=== PATIENT | male | born 1965 | race Caucasian/White ===

== ENCOUNTER 2024-08-14 14:08 | Inpatient (IN) | payer OTHER ==
[~2024-08-14] VITALS: Ht 165.1 cm; Wt 81.7 kg
[2024-08-14 14:51] LABS: BASOPHILS ABSOLUTE AUTO 0.03 K/mm3 (0.00-0.23); BASOPHILS PERCENT AUTO 1 % (0-2); EOSINOPHILS ABSOLUTE AUTO 0.06 K/mm3 (0.00-0.68); EOSINOPHILS PERCENT AUTO 1 % (0-6); Hematocrit 45.4 % (37.0-53.0); Hemoglobin 14.7 g/dL (13.5-17.5); IMMATURE GRAN ABSOLUTE AUTO 0.01 K/mm3 (0.00-0.10); IMMATURE GRAN PERCENT AUTO 0 % (0-1); LYMPHOCYTES PERCENT AUTO 20 % (21-46); MONOCYTES ABSOLUTE AUTO 0.41 K/mm3 (0.16-1.47); MONOCYTES PERCENT AUTO 8 % (4-13); Mean Corpuscular HGB 29.4 pg (26.0-34.0); Mean Corpuscular HGB Conc 32.4 g/dL (31.5-36.5); Mean Corpuscular Volume 91 fL (80-100); Mean Platelet Volume 10.2 fL (9.1-12.4); NEUTROPHILS ABSOLUTE AUTO 3.49 K/mm3 (1.96-9.15); NEUTROPHILS PERCENT AUTO 70 % (41-73); Platelet Count 172 K/mm3 (150-400); RDW Coefficient Variation 16.3 % (11.7-14.2)
[2024-08-14 15:12] LABS: Albumin, Blood 3.1 g/dL (3.4-5.0); Albumin/Globulin Ratio 0.9 (0.8-1.8); Bilirubin, Total 1.4 mg/dL (0.1-1.0); Bun/Creatinine Ratio 18.4 (12.0-20.0); Calcium, Blood 8.8 mg/dL (8.5-10.1); Creatinine, Blood 1.03 mg/dL (0.60-1.20); Globulin, Blood 3.5 g/dL (2.2-4.0); Potassium, Blood 4.4 mmol/L (3.5-5.5); Total Protein, Blood 6.6 g/dL (6.4-8.2)
[2024-08-14] MEDS ORDERED: Furosemide 10 MG/ML 10ML Vial IV ONE (17:30)
[2024-08-14] MEDS ORDERED: Aspir 8181 MG PO (18:32)
[2024-08-14] MEDS ORDERED: CARV25 PO (18:32)
[2024-08-14] MEDS ORDERED: JARDIANCE25 MG PO (18:32)
[2024-08-14] MEDS ORDERED: PROSTIN VR500 MCG/3 (18:32)
[2024-08-14] MEDS ORDERED: ALLO100 PO (18:33)
[2024-08-14] MEDS ORDERED: TRAZ100 PO (18:33)
[2024-08-14] MEDS ORDERED: METF500 PO (18:33)
[2024-08-14] MEDS ORDERED: ESCI20 PO (18:33)
[2024-08-14] MEDS ORDERED: THERA-D2000 UNIT PO (18:34)
[2024-08-14] MEDS ORDERED: ENTRESTO 49 MG1 EACH PO (18:34)
[2024-08-14] MEDS ORDERED: FENO145 PO (18:34)
[2024-08-14] MEDS ORDERED: SPIR25 PO (18:34)
[2024-08-14] MEDS ORDERED: Ondansetron HCl 2 MG / ML 2ML Vial IV PRN (18:45)
[2024-08-14] MEDS ORDERED: FLU VACC TS2024-25(6MOS UP)/PF 45 MCG/0.5 ML SYRINGE IM SCH (18:45)
[2024-08-14 20:31] LABS: Source, Urine Clean Catch
[2024-08-14 20:34] LABS: Appearance, Urine Clear (Clear); Bilirubin, Urine Neg (Neg); Blood, Urine Neg (Neg); Glucose Qualitative, Urine 2+ (Neg); Ketones, Urine Neg (Neg); Leukocyte Esterase, Urine Neg (Neg); Nitrite, Urine Neg (Neg); Protein, Urine Neg (Neg); Urobilinogen, Urine NORM (Normal)
[2024-08-14 20:39] LABS: Color, Urine Pale Yellow (P-Yellow)
[2024-08-14] MEDS ORDERED: Enoxaparin 40 MG/0.4 ML SYR SC SCH (21:00)
[2024-08-14 21:31] VITALS: BP 137/94
[2024-08-14] MEDS ORDERED: FentaNYL Citrate 50 MCG/ML 2 ML Injection IV PRN (21:45)
[2024-08-15 02:42] VITALS: BP 152/104
[2024-08-15 03:04] LABS: BASOPHILS ABSOLUTE AUTO 0.03 K/mm3 (0.00-0.23); BASOPHILS PERCENT AUTO 1 % (0-2); EOSINOPHILS ABSOLUTE AUTO 0.11 K/mm3 (0.00-0.68); EOSINOPHILS PERCENT AUTO 2 % (0-6); Hematocrit 45.6 % (37.0-53.0); Hemoglobin 14.4 g/dL (13.5-17.5); IMMATURE GRAN ABSOLUTE AUTO 0.01 K/mm3 (0.00-0.10); IMMATURE GRAN PERCENT AUTO 0 % (0-1); LYMPHOCYTES ABSOLUTE AUTO 1.49 K/mm3 (0.84-5.20); LYMPHOCYTES PERCENT AUTO 29 % (21-46); MONOCYTES ABSOLUTE AUTO 0.55 K/mm3 (0.16-1.47); MONOCYTES PERCENT AUTO 11 % (4-13); Mean Corpuscular HGB Conc 31.6 g/dL (31.5-36.5); Mean Corpuscular Volume 92 fL (80-100); NEUTROPHILS ABSOLUTE AUTO 2.87 K/mm3 (1.96-9.15); NEUTROPHILS PERCENT AUTO 57 % (41-73); Platelet Count 197 K/mm3 (150-400); RDW Coefficient Variation 16.4 % (11.7-14.2); RDW Standard Deviation 54.6 fL (35.1-46.3); Red Blood Cell Count 4.96 M/mm3 (4.30-5.90); White Blood Cell Count 5.06 K/mm3 (4.00-11.30)
[2024-08-15 03:24] LABS: Albumin, Blood 3.1 g/dL (3.4-5.0); Albumin/Globulin Ratio 0.9 (0.8-1.8); Bun/Creatinine Ratio 18.6 (12.0-20.0); Calcium, Blood 8.9 mg/dL (8.5-10.1); Creatinine, Blood 1.13 mg/dL (0.60-1.20); Globulin, Blood 3.5 g/dL (2.2-4.0); Total Protein, Blood 6.6 g/dL (6.4-8.2)
--- NOTE | 2024-08-15 06:34 | NUR ---
VSS, ELEVATED BP. PT VOIDING APPROPRIATELY. ADMISSION COMPLETED. ADMITTED FOR FLUID OVERLOAD LASIX ADMINISTERED. NO O2 BL, REQUIRED 2L - TITRATED TO 1L VIA NC.
[2024-08-15 07:47] VITALS: BP 135/81
[2024-08-15] MEDS ORDERED: Furosemide 10 MG/ML 10ML Vial IV SCH (09:00)
[2024-08-15] MEDS ORDERED: Carvedilol 25 MG Tab PO SCH (09:00)
[2024-08-15] MEDS ORDERED: Furosemide 10 MG/ML 4ML Vial IV SCH (09:00)
[2024-08-15] MEDS ORDERED: Citalopram Hydrobromide 20 MG Tab PO SCH (09:00)
[2024-08-15] MEDS ORDERED: Sacubitril/Valsartan 49 MG/51 MG Tab PO SCH (09:00)
[2024-08-15] MEDS ORDERED: Spironolactone 25 MG Tab PO SCH (09:00)
[2024-08-15] MEDS ORDERED: Empagliflozin 10 MG TAB PO SCH (09:00)
[2024-08-15] MEDS ORDERED: Allopurinol 100 MG Tab PO SCH (09:00)
[2024-08-15] MEDS ORDERED: Aspirin 81 MG TabEC PO SCH (09:00)
[2024-08-15] MEDS ORDERED: HYDROcodone 5-APAP 325 TAB PO PRN (10:00)
[2024-08-15 13:09] LABS: U Amphetamine Screen Not Detected; U Barbituate Screen Not Detected; U Benzodiazapine Screen Not Detected; U Buprenorphine Screen Not Detected; U Cannabinoids Screen Not Detected; U Cocaine Screen DETECTED; U Methadone Screen Not Detected; U Methamphetamine Screen Not Detected; U Opiates Screen Not Detected; U Oxycodone Screen Not Detected; U Phencyclidine Screen Not Detected
[2024-08-15 15:09] VITALS: BP 110/80
--- NOTE | 2024-08-15 17:28 | NUR ---
SHIFT SUMMARY: PT AOX4 INDEPENDENT TO BATHROOM AND URINAL. STILL HEAVY EDEMA IN LEGS AND SCROTUM, SEE SHIFT SUMMARY FOR DETAILS. ECHO DONE ON PT IN THE MORNING AND DR EPSTEIN CALLED A CARDIOLOGY CONSULT BASED ON RESULTS. AT BEDSIDE AND PT RESTING. DIURESING WELL AND INTO THE URINAL INSTRUCTED. PT RESTING IN BED AND IN LOWEST POSISTION. CALL LIGHT IN REACH. CONTINUING CARE.
--- NOTE | 2024-08-15 18:18 | NUR ---
THIS SPIN INSTRUCTOR HAS REVIEWED AND AGREES WITH ALL NOTES AND ASSESSMENTS BY MAGALY ZHAO.
[2024-08-15 19:46] VITALS: BP 124/83
[2024-08-15] MEDS ORDERED: Metoprolol Succinate 25 MG TABCR PO SCH (21:00)
[2024-08-15] MEDS ORDERED: TraZODone HCl 100 MG Tab PO SCH (21:00)
[2024-08-15] MEDS ORDERED: Docusate Sodium 100 MG Cap PO SCH (21:00)
[2024-08-16 04:13] VITALS: BP 121/90
[2024-08-16 06:29] LABS: Anion Gap 10 mmol/L (3-11); Blood Urea Nitrogen 21 mg/dL (8-24); Bun/Creatinine Ratio 23.2 (12.0-20.0); CHOL/HDL RATIO 3.1; CO2, Blood 30 mmol/L (21-32); Calcium, Blood 8.5 mg/dL (8.5-10.1); Chloride, Blood 104 mmol/L (98-108); Cholesterol 118 mg/dL (50-200); Creatinine, Blood 0.91 mg/dL (0.60-1.20); Glomerular Filtration Rate 98 (60-); Glucose, Blood 105 mg/dL (70-99); HDL Cholesterol 38 mg/dL (>39); LDL/HDL RATIO 1.6; Low Density Lipoprotein Chol 61 mg/dL (0-110); Potassium, Blood 3.2 mmol/L (3.5-5.5); Sodium, Blood 141 mmol/L (136-145); Triglycerides 94 mg/dL (30-160); Very Low Density Lipoprot Chol 18 mg/dL (6-32)
--- NOTE | 2024-08-16 06:55 | NUR ---
NO ACUTE CHANGES DURING SHIFT
[2024-08-16] MEDS ORDERED: Potassium Chloride 20 MEQ TabCR PO STA (07:09)
[2024-08-16] MEDS ORDERED: Potassium Chloride 20 MEQ TabCR PO ONE (07:30)
[2024-08-16 07:58] VITALS: BP 134/97
[2024-08-16] MEDS ORDERED: Potassium Chloride 10 Meq Tablet SA PO SCH (08:30)
[2024-08-16] MEDS ORDERED: Atorvastatin 40 MG Tab PO SCH (09:00)
[2024-08-16] MEDS ORDERED: Metoprolol Succinate 25 MG TABCR PO SCH (09:00)
[2024-08-16 14:56] VITALS: BP 122/83
--- NOTE | 2024-08-16 17:47 | NUR ---
SHIFT SUMMARY: PT AOX4 DIURESING WELL. AT BEDSIDE. PT COMPLAINED OF PAIN AND NORCO GIVEN PER EMR. SHOWERED AND FEELING BETTER. EDEMA HAS REDUCED TO ABOUT 2+ FROM 4+. PT IN LOWEST POSITION WATCHING TV RESTING. BED RAILS UP AND CALL LIGHT IN REACH. CONTINUING CARE.
--- NOTE | 2024-08-16 18:24 | NUR ---
THIS CREDIT OPERATIONS PROCESSOR HAS REVIEWED AND AGREES WITH ALL NOTES AND ASSESSMENTS BY MAGALY ZHAO.
[2024-08-16 19:12] VITALS: BP 136/86
[2024-08-17 04:19] VITALS: BP 85/55
[2024-08-17 04:27] VITALS: BP 103/64
[2024-08-17 05:30] LABS: Bun/Creatinine Ratio 15.6 (12.0-20.0); Creatinine, Blood 1.09 mg/dL (0.60-1.20); Magnesium, Blood 1.8 mg/dL (1.6-2.4); Potassium, Blood 3.3 mmol/L (3.5-5.5)
--- NOTE | 2024-08-17 06:47 | NUR ---
NO ACUTE CHANGES OVERNIGHT. POTASSIUM RESULT 3.3 THIS MORNING
[2024-08-17] MEDS ORDERED: Potassium Chloride 20 MEQ TabCR PO STA (07:03)
[2024-08-17 07:20] VITALS: BP 105/76
[2024-08-17] MEDS ORDERED: Potassium Chloride 20 MEQ TabCR PO ONE (07:20)
[2024-08-17] MEDS ORDERED: Torsemide 20 MG TAB PO SCH (09:00)
[2024-08-17] MEDS ORDERED: METO25ER PO (11:53)
[2024-08-17] MEDS ORDERED: TORSE20 PO (11:54)
[2024-08-17] MEDS ORDERED: KLOR-CON 1010 ME9 PO (11:56)
--- NOTE | 2024-08-17 13:16 | NUR ---
DISCHARGE SUMMARY: PT DISCHARGED @1230, AOX4 SELF AMBULATED INTO WHEEL CHAIR AND TAKEN HOME IN CAR BY . IV REMOVED, TELE REMOVED WITHOUT ISSUE. DISCHARGE TEACHING AND NEW MEDS GIVEN. WILL FOLLOWUP WITH [facility] NEW PATIENT FOR PCP AND CARDIOLOGY FOLLOW UP. PATIENT IN GOOD MOOD AND AFFECT.
--- NOTE | 2024-08-17 14:05 | NUR ---
THIS CHIEF OF INTERNAL MEDICINE HAS REVIEWED AND AGREES WITH ALL NOTES AND ASSESSMENTS BY MAGALY ZHAO.
[2024-08-18] MEDS ORDERED: Furosemide 10 MG/ML 4ML Vial IV SCH (09:00)
== END 2024-08-17 12:34 | disposition home or self-care (01) | DRG 291 ==
LOC: ER 14:08 → MEDS 18:25 → ERHOLD 18:25 → MEDS 21:31
PROVIDERS: Internal Medicine; Internal Medicine Cardiovascular Disease; Physician Assistant; ADMIT Internal Medicine
DX: I11.0 Hypertensive heart disease with heart failure (principal); I50.23 Acute on chronic systolic (congestive) heart failure; J96.01 Acute respiratory failure with hypoxia; I42.0 Dilated cardiomyopathy; E11.9 Type 2 diabetes mellitus without complications; E78.00 Pure hypercholesterolemia, unspecified; I27.20 Pulmonary hypertension, unspecified; G47.33 Obstructive sleep apnea (adult) (pediatric); I42.7 Cardiomyopathy due to drug and external agent; T40.5X5A Adverse effect of cocaine, initial encounter; I25.10 Atherosclerotic heart disease of native coronary artery without angina pectoris; I08.1 Rheumatic disorders of both mitral and tricuspid valves; I42.8 Other cardiomyopathies; F14.10 Cocaine abuse, uncomplicated; E87.6 Hypokalemia; I25.2 Old myocardial infarction; Z95.1 Presence of aortocoronary bypass graft; Z79.82 Long term (current) use of aspirin; Z79.899 Other long term (current) drug therapy; Z71.51 Drug abuse counseling and surveillance of drug abuser
CPT/HCPCS: 36415; 71046; 80048; 80053; 80061; 81003; 83735; 83880; 84484; 85025; 93005; 93010; 93306; 94660; 94762; 96374; 99285-25; A9270; J1650; J1940; J3010

== ENCOUNTER 2024-10-28 06:02 | Day surgery (SDC) | payer OTHER ==
[~2024-10-28] VITALS: Ht 165.1 cm; Wt 90.9 kg
[2024-10-28] VITALS (9 sets, daily range): BP systolic 106–160; BP diastolic 79–117
[~2024-10-28 06:02] MED LIST: ALLO100 PO; ATOR40TA PO; Aspir 8181 MG PO; CARV25 PO; ENTRESTO 49 MG1 EACH PO; ESCI20 PO; FENO145 PO; JARDIANCE25 MG PO; KLOR-CON 1010 ME9 PO; METF500 PO; METO25ER PO; PROSTIN VR500 MCG/3; SPIR25 PO; THERA-D2000 UNIT PO; TORSE20 PO; TRAZ100 PO
[2024-10-28] MEDS ORDERED: Heparin Sodium 1000 Units/ML 10ML MDV ONE (06:37)
[2024-10-28] MEDS ORDERED: Verapamil HCL 2.5 MG/ML 2ML Injection ONE (06:37)
[2024-10-28] MEDS ORDERED: NS 250 ML IV ONE (06:38)
[2024-10-28] MEDS ORDERED: Nitroglycerin 2 MG/20 ML BTL ONE (06:38)
[2024-10-28] MEDS ORDERED: NS 1,000 ML IV ONE ×2 (06:38→06:53)
[2024-10-28] MEDS ORDERED: Midazolam HCl 1MG / ML 2ML Vial ONE (06:52)
[2024-10-28] MEDS ORDERED: FentaNYL Citrate 50 MCG/ML 2 ML Injection ONE (06:52)
[2024-10-28 07:01] LABS: BASOPHILS ABSOLUTE AUTO 0.02 K/mm3 (0.00-0.23); BASOPHILS PERCENT AUTO 1 % (0-2); EOSINOPHILS ABSOLUTE AUTO 0.07 K/mm3 (0.00-0.68); EOSINOPHILS PERCENT AUTO 2 % (0-6); Hematocrit 46.3 % (37.0-53.0); Hemoglobin 15.9 g/dL (13.5-17.5); IMMATURE GRAN ABSOLUTE AUTO 0.04 K/mm3 (0.00-0.10); IMMATURE GRAN PERCENT AUTO 1 % (0-1); LYMPHOCYTES ABSOLUTE AUTO 1.57 K/mm3 (0.84-5.20); LYMPHOCYTES PERCENT AUTO 38 % (21-46); MONOCYTES ABSOLUTE AUTO 0.31 K/mm3 (0.16-1.47); MONOCYTES PERCENT AUTO 8 % (4-13); Mean Corpuscular HGB 31.1 pg (26.0-34.0); Mean Corpuscular HGB Conc 34.3 g/dL (31.5-36.5); Mean Corpuscular Volume 90 fL (80-100); NEUTROPHILS ABSOLUTE AUTO 2.11 K/mm3 (1.96-9.15); NEUTROPHILS PERCENT AUTO 51 % (41-73); Platelet Count 133 K/mm3 (150-400); RDW Coefficient Variation 15.9 % (11.7-14.2); RDW Standard Deviation 52.2 fL (35.1-46.3); Red Blood Cell Count 5.12 M/mm3 (4.30-5.90); White Blood Cell Count 4.12 K/mm3 (4.00-11.30)
[2024-10-28 07:11] LABS: Bun/Creatinine Ratio 20.8 (12.0-20.0); Calcium, Blood 9.1 mg/dL (8.5-10.1); Creatinine, Blood 1.01 mg/dL (0.60-1.20); Potassium, Blood 4.1 mmol/L (3.5-5.5)
[2024-10-28 07:39] LABS: International Normalized Ratio 0.97; Prothrombin Time Results 10.4 Sec (9.7-11.5)
--- NOTE | 2024-10-28 08:40 | NUR ---
PATIENT ARRIVED TO RECOVERY ROOM SITTING UPRIGHT IN RECLINER. R RADIAL TR BAND FULLY INFLATED. SITE C/D/I SOFT/NONTENDER, NO EVIDENCE OF BLEEDING. VSS ON RA. PATIENT CONVERSING APPROPRIATELY
--- NOTE | 2024-10-28 08:51 | NUR ---
MD PRESENT AT BEDSIDE DISCUSSING RESULTS AND PLAN.
--- NOTE | 2024-10-28 09:30 | NUR ---
INITIAL 2 CC OF AIR REMOVED FROM R RADIAL TR BAND. SITE C/D/I SOFT/NONTENDER, NO EVIDENCE OF BLEEDING. WILL CONTINUE TO MONITOR. PATIENT TOLERATING PO INTAKE WELL.
--- NOTE | 2024-10-28 10:15 | NUR ---
ALL AIR REMOVED FROM R RADIAL TR BAND. SITE C/D/I SOFT/NONTENDER, NO EVIDENCE OF BLEEDING. VSS ON RA. PATIENT DENYING ANY PAIN. PATIENT TOLERATING PO INTAKE WELL.
--- NOTE | 2024-10-28 11:00 | NUR ---
PATIENT DISCHARGED HOME AT THIS TIME. [facility]STRU[facility] ALL QUESTIONS WERE ANSWERED. PIV REMOVED WITHOUT DIFFICULTY, CAHTETER INTACT. TR BAND REMOVED, CLOTH DOT AND WHITE ARM BOARD IN PLACE. PATIENT WHEELED TO HOSPITAL ENTRANCE AND SO ABLE TO PROVIDE TRANSPORTATION HOME. PATIENT AMBULATING AND VOIDING WITHOUT DIFFICULTY.
== END 2024-10-28 11:00 | disposition home or self-care (01) ==
LOC: MHTC 06:02
PROVIDERS: Internal Medicine Cardiovascular Disease; Student in an Organized Health Care Education/Training Program
DX: I25.10 Atherosclerotic heart disease of native coronary artery without angina pectoris (principal); I50.20 Unspecified systolic (congestive) heart failure; I25.5 Ischemic cardiomyopathy; E11.9 Type 2 diabetes mellitus without complications; I27.20 Pulmonary hypertension, unspecified; E78.5 Hyperlipidemia, unspecified; G47.33 Obstructive sleep apnea (adult) (pediatric); Z79.82 Long term (current) use of aspirin; Z79.84 Long term (current) use of oral hypoglycemic drugs; Z79.899 Other long term (current) drug therapy
CPT/HCPCS: 76937; 80048; 85025; 85610; 93456; 99152; 99153; C1769; C1887; C1894; J1644; J2250; J3010; J7030; J7050; Q9967

== ENCOUNTER 2024-11-10 12:15 | Emergency (ER) | payer OTHER ==
[~2024-11-10] VITALS: Ht 165.1 cm; Wt 90.7 kg
[2024-11-10] MEDS ORDERED: Ketorolac Tromethamine 15mg Vial IM ONE (14:30)
[2024-11-10] MEDS ORDERED: Lidocaine 4% 1 Patch TOP ONE (14:35)
[2024-11-10] MEDS ORDERED: OxyCODONE 10/Acetamin 325 TABLET PO ONE (14:35)
[2024-11-10] MEDS ORDERED: ACET500 PO (15:26)
[2024-11-10] MEDS ORDERED: IBUP600 PO (15:26)
[2024-11-10] MEDS ORDERED: LIDO700A20 TOP (15:26)
== END 2024-11-10 15:32 | disposition home or self-care (01) ==
LOC: ER 12:15
DX: M75.32 Calcific tendinitis of left shoulder (principal); E11.9 Type 2 diabetes mellitus without complications; I10 Essential (primary) hypertension; E78.00 Pure hypercholesterolemia, unspecified; V89.2XXA Person injured in unspecified motor-vehicle accident, traffic, initial encounter; Z87.891 Personal history of nicotine dependence; Z79.82 Long term (current) use of aspirin; Z79.899 Other long term (current) drug therapy
CPT/HCPCS: 71101; 73000; 73030; 96372; 99284-25; A9270; J1885

== ENCOUNTER 2025-02-05 07:13 | Day surgery (SDC) | payer OTHER ==
[2025-02-05] VITALS (7 sets, daily range): BP systolic 98–125; BP diastolic 67–87
[~2025-02-05] VITALS: Ht 165.1 cm; Wt 97.0 kg
[~2025-02-05 07:13] MED LIST changes: +ACET500 PO; +IBUP600 PO; +LIDO700A20 TOP
[2025-02-05] MEDS ORDERED: NS 500 ML IV ONE (07:42)
[2025-02-05] MEDS ORDERED: Heparin Sodium 1000 Units/ML 10ML MDV ONE ×2 (07:43→08:46)
[2025-02-05] MEDS ORDERED: Nitroglycerin 2 MG/20 ML BTL ONE (07:43)
[2025-02-05] MEDS ORDERED: NS 1,000 ML IV ONE ×2 (07:43→08:06)
[2025-02-05 07:53] LABS: BASOPHILS ABSOLUTE AUTO 0.02 K/mm3 (0.00-0.23); BASOPHILS PERCENT AUTO 0 % (0-2); EOSINOPHILS ABSOLUTE AUTO 0.09 K/mm3 (0.00-0.68); EOSINOPHILS PERCENT AUTO 2 % (0-6); Hematocrit 49.2 % (37.0-53.0); IMMATURE GRAN ABSOLUTE AUTO 0.03 K/mm3 (0.00-0.10); IMMATURE GRAN PERCENT AUTO 1 % (0-1); LYMPHOCYTES ABSOLUTE AUTO 1.48 K/mm3 (0.84-5.20); LYMPHOCYTES PERCENT AUTO 32 % (21-46); MONOCYTES ABSOLUTE AUTO 0.37 K/mm3 (0.16-1.47); MONOCYTES PERCENT AUTO 8 % (4-13); Mean Corpuscular HGB 31.7 pg (26.0-34.0); Mean Corpuscular HGB Conc 34.6 g/dL (31.5-36.5); Mean Corpuscular Volume 92 fL (80-100); Mean Platelet Volume 9.8 fL (9.1-12.4); NEUTROPHILS ABSOLUTE AUTO 2.58 K/mm3 (1.96-9.15); NEUTROPHILS PERCENT AUTO 56 % (41-73); Platelet Count 126 K/mm3 (150-400); RDW Standard Deviation 46.5 fL (35.1-46.3); Red Blood Cell Count 5.37 M/mm3 (4.30-5.90); White Blood Cell Count 4.57 K/mm3 (4.00-11.30)
[2025-02-05 08:04] LABS: International Normalized Ratio 1.02; Prothrombin Time Results 10.9 Sec (9.7-11.5)
[2025-02-05] MEDS ORDERED: FentaNYL Citrate 50 MCG/ML 2 ML Injection ONE ×2 (08:06→09:17)
[2025-02-05] MEDS ORDERED: Midazolam HCl 1MG / ML 2ML Vial ONE (08:06)
[2025-02-05 08:33] LABS: Bun/Creatinine Ratio 19.6 (12.0-20.0); Calcium, Blood 9.2 mg/dL (8.5-10.1); Creatinine, Blood 1.07 mg/dL (0.60-1.20); Potassium, Blood 3.7 mmol/L (3.5-5.5)
[2025-02-05] MEDS ORDERED: Phenylephrine HCl 100 MCG/ML-NS 10MLSYR (1MG/10ML) ONE (08:40)
[2025-02-05] MEDS ORDERED: CLOP75 PO (10:09)
--- NOTE | 2025-02-05 11:00 | NUR ---
PT UP TO BATHROOM /S ASSIST. TOLERATED WELL. NEG BLEEDING OR SWELLING R GROIN AREA.
--- NOTE | 2025-02-05 11:31 | NUR ---
PT AND VERBALIZED UNDERSTANDING OF WRITTEN AND VERBAL D/C INST. IV REMOVED. PT TAKEN OUT OF THE HRT CENTER VIA W/C.
== END 2025-02-05 12:00 | disposition home or self-care (01) ==
LOC: MHTC 07:13
PROVIDERS: Radiology Diagnostic Radiology
DX: E11.51 Type 2 diabetes mellitus with diabetic peripheral angiopathy without gangrene (principal); I70.222 Atherosclerosis of native arteries of extremities with rest pain, left leg; I10 Essential (primary) hypertension; I25.10 Atherosclerotic heart disease of native coronary artery without angina pectoris; E78.5 Hyperlipidemia, unspecified; I42.0 Dilated cardiomyopathy; Z87.891 Personal history of nicotine dependence; Z79.84 Long term (current) use of oral hypoglycemic drugs; Z79.899 Other long term (current) drug therapy
CPT/HCPCS: 37227; 37228; 37232; 75625; 75716; 75774; 76937; 80048; 85025; 85347; 85610; 99152; 99153; C1714; C1725; C1760; C1769; C1874; C1887; C1894; C2623; J1644; J2250; J2371; J3010; J7030; J7050; Q9967